=== PATIENT | female | born 1940 ===

== ENCOUNTER 2022-09-06 07:52 | Day surgery (SDC) | payer OTHER | END 2022-09-06 12:30 | disposition home or self-care (01) | LOC: AMB-ENDOS 07:52 | PROVIDERS: ATTEND Surgery | DX: D12.2 Benign neoplasm of ascending colon (principal); Z20.822 Contact with and (suspected) exposure to COVID-19; E03.9 Hypothyroidism, unspecified; E10.9 Type 1 diabetes mellitus without complications; E78.5 Hyperlipidemia, unspecified; I10 Essential (primary) hypertension ==

== ENCOUNTER 2022-12-27 20:10 | Emergency (ER) | payer OTHER ==
[~2022-12-27] VITALS: Ht 154.9 cm; Wt 59.0 kg
[2022-12-27] MEDS ORDERED: HUMULIN 70100 UNIT/2 (20:13)
[2022-12-27] MEDS ORDERED: ADMELOG100 UNIT/1 (20:13)
[2022-12-27] MEDS ORDERED: FAMOTIDINE20 MG (20:13)
[2022-12-27] MEDS ORDERED: FENOFIBRATE145 MG (20:13)
[2022-12-27] MEDS ORDERED: RAZADYNE ER16 MG (20:14)
[2022-12-27] MEDS ORDERED: MEMANTINE HCL5 MG (20:14)
[2022-12-27] MEDS ORDERED: SERTRALINE HCL50 MG (20:14)
[2022-12-27] MEDS ORDERED: SIMVASTATIN20 MG (20:14)
[2022-12-27] MEDS ORDERED: RESTORIL30 MG (20:14)
[2022-12-28] MEDS ORDERED: TRAMADOL HCL50 MG PO (11:15)
== END 2022-12-28 13:26 | disposition home or self-care (01) ==
LOC: ER 20:10
DX: K62.3 Rectal prolapse (principal); Z88.8 Allergy status to other drugs, medicaments and biological substances; E11.65 Type 2 diabetes mellitus with hyperglycemia; Z79.4 Long term (current) use of insulin; I11.9 Hypertensive heart disease without heart failure

== ENCOUNTER → 2023-09-02 06:00 | Outpatient (CLI) | payer OTHER ==
[~2023-09-02 06:00] MED LIST: ADMELOG100 UNIT/1; FAMOTIDINE20 MG; FENOFIBRATE145 MG; HORIZANT300 MG PO; HUMULIN 70100 UNIT/1; HUMULIN 70100 UNIT/2; JARDIANCE10 MG PO; LEVOTHYROXINE25 MCG PO; MEMANTINE HCL5 MG; NAMENDA PO; RAZADYNE ER16 MG; RESTORIL30 M1 PO; RESTORIL30 MG; SERTRALINE HCL50 MG; SIMVASTATIN20 MG; TRAMADOL HCL50 MG PO; ZOLOFT50 MG PO; ZYPREXA10 MG PO
== END | disposition home or self-care (01) ==
LOC: LAB 06:00 → ADM 09:15 → SURH 09-06 07:00 → EDSTATUS 09-06 09:15 → CIR.AMB 09-06 09:15
PROVIDERS: ATTEND Surgery
DX: Z01.811 Encounter for preprocedural respiratory examination (principal); K62.5 Hemorrhage of anus and rectum; K62.89 Other specified diseases of anus and rectum; R15.9 Full incontinence of feces; R19.4 Change in bowel habit; K62.3 Rectal prolapse; K83.5 Biliary cyst; D12.2 Benign neoplasm of ascending colon; R10.9 Unspecified abdominal pain; N39.0 Urinary tract infection, site not specified